=== PATIENT | female | born 1985 | race Caucasian/White ===

== ENCOUNTER 2021-01-18 14:59 | Emergency (ER) | payer OTHER ==
[~2021-01-18] VITALS: Ht 157.5 cm; Wt 72.6 kg
[2021-01-18] MEDS ORDERED: HEMATRON AF PO (16:53)
== END 2021-01-18 17:05 | disposition home or self-care (01) ==
LOC: ER 14:59
DX: D64.9 Anemia, unspecified (principal)

== ENCOUNTER 2023-12-06 05:36 | Day surgery (SDC) | payer OTHER ==
[2023-11-29 11:49] LABS: HEMATOCRIT 34.4 % (36.0-45.00); HEMOGLOBIN 11.7 g/dL (12.0-15.00); MEAN CELL VOLUME 77.7 fL (80.00-100.00); MEAN CORPUSCULAR HEMOGLOBIN 26.5 pg (27.00-32.0); MEAN CORPUSCULAR HGB CONC 34.1 g/dl (32.0-36.0); PLATELET COUNT 318 K/uL (150-450); RED BLOOD COUNT 4.43 M/uL (4.00-6.00); RED CELL DISTRIBUTION WIDTH 15.4 % (11.5-14.5)
[2023-11-29 11:53] LABS: PH,URINE 5.5 (5.0-8.0); URINE APPEARANCE Clear; URINE BILIRRUBIN Negative (NEGATIVE); URINE BLOOD Negative; URINE COLOR Yellow; URINE GLUCOSE Negative (NEGATIVE); URINE KETONE Negative (NEGATIVE); URINE LEUKOCYTE Negative; URINE NITRATE Negative; URINE PROTEIN Negative (NEGATIVE); URINE UROBILINOGEN 0.2 E.U./dl
[2023-11-29 11:58] LABS: URINE BACTERIA 3490.1 uL (0.0-1933); URINE EPITHELIAL CELLS 91.3 uL (0.0-38.8); URINE RBC 3.3 uL (0.0-20.8); URINE WBC 101.4 uL (0.0-23.2)
[2023-11-29 12:08] LABS: INR 0.98; PARTIAL THROMBOPLASTIN TIME 29.1 SECONDS (22.0-34.0); PROTHROMBIN TIME 10.3 SECONDS (9.0-11.5)
[2023-11-29 12:56] LABS: CALCIUM 9.5 mg/dL (8.5-10.1); CREATININE SERUM 0.78 mg/dL (0.55-1.02); GFR 82.65; POTASSIUM 4.4 mEq/L (3.5-5.1)
[~2023-12-06] VITALS: Ht 157.5 cm; Wt 75.3 kg
[~2023-12-06 05:36] MED LIST: HEMATRON AF PO
[2023-12-06] MEDS ORDERED: BUPIVACAINE HCL 30 ML VIAL IJ ONE (08:30)
[2023-12-06] MEDS ORDERED: METRONIDAZOLE/SODIUM CHLORIDE 500 MG/100 ML PIGGYBACK IV SCH (08:30)
[2023-12-06] MEDS ORDERED: CEFTRIAXONE SODIUM 2,000 MG VIAL IV SCH (08:30)
[2023-12-06] MEDS ORDERED: ENOXAPARIN SODIUM 40 MG/0.4 ML SYRINGE SUBCUTANEO ONE (08:30)
[2023-12-06] MEDS ORDERED: NEURONTIN300 MG PO (09:48)
[2023-12-06] MEDS ORDERED: CELEBREX200MG PO (09:48)
[2023-12-06] MEDS ORDERED: PERCOCET 5-3251 EACH PO (09:48)
[2023-12-06] MEDS ORDERED: POLY119PG PO (09:49)
== END 2023-12-06 11:40 | disposition home or self-care (01) ==
LOC: CIR.AMB 05:36
PROVIDERS: ATTEND Surgery
DX: K43.0 Incisional hernia with obstruction, without gangrene (principal); E16.2 Hypoglycemia, unspecified; K59.00 Constipation, unspecified
CPT/HCPCS: 49594; C1781